=== PATIENT | female | born 1940 | race Caucasian/White ===

== ENCOUNTER 2016-05-03 08:20 | Outpatient (CLI) | payer OTHER ==
[2016-05-03 08:58] LABS: Cardiac Risk 3.1 (Less than 4.5)
== END 2016-05-03 08:21 | disposition home or self-care (01) ==
LOC: MADLAB 08:20
DX: Z00.00 Encounter for general adult medical examination without abnormal findings (principal)
CPT/HCPCS: 36415; 80061; 82947